=== PATIENT | female | born 1980 | race Caucasian/White ===

== ENCOUNTER 2016-12-18 10:22 | Day surgery (SDC) | payer OTHER ==
[~2016-12-18 10:22] MED LIST: LR 1,000 ML IV ONE
[2016-12-18] MEDS ORDERED: SILVER NITRATE APPLICATOR 1 APPL TP ONE (10:42)
[2016-12-18] MEDS ORDERED: BUPIVACAINE 0.5% 30 ML SDV ONE (10:42)
[2016-12-18] MEDS ORDERED: LR 1,000 ML IV ONE (10:52)
[2016-12-18] MEDS ORDERED: LIDOCAINE 1% 2 ML INJ ID PRN (10:52)
[2016-12-18] MEDS ORDERED: MIDAZOLAM 2 MG/2 ML VIAL IVP ONE (11:28)
--- NOTE | 2016-12-18 11:30 | PDANEPAE ---
ANE Past Medical History - Cardiovascular History Hx Hypertension: No Hx Arrhythmias: No Hx Chest Pain: No Hx Coronary Artery / Peripheral Vascular Disease: No Hx CHF / Valvular Disease: No Hx Palpitations: No - Pulmonary History Hx COPD: No Hx Asthma/Reactive Airway Disease: Yes Hx Recent Upper Respiratory Infection: No Hx Oxygen in Use at Home: No - Neurologic History Hx Cerebrovascular Accident: No Hx Seizures: No Hx Dementia: No - Endocrine History Hx Diabetes: No - Renal History Hx Renal Disorders: No - Liver History Hx Hepatic Disorders: No - Neurological & Psychiatric Hx Hx Neurological and Psychiatric Disorders: No - Cancer History Hx Cancer: No - Congenital Disorder History Hx Congenital Disorders: No - GI History Hx Gastrointestinal Disorders: No - Chronic Pain History Chronic Pain: No ANE Review of Systems - Exercise capacity METS (RN): 4 METS ANE Patient History - Allergies Allergies/Adverse Reactions: erythromycin base Allergy (Verified 11/27/16 11:34) Vomiting - Home Medications Home Medications: Benadryl 11/27/16 [Last Taken 12/16/16] Ibuprofen 11/27/16 [Last Taken 12/11/16] Loestrin 21 1-20 Tablet 11/27/16 [Last Taken 12/17/16] Sudafed 12-Hour 11/27/16 [Last Taken 12/14/16] - NPO status NPO Since - Liquids (Date): 12/17/16 NPO Since - Liquids (Time): 22:30 NPO Since - Solids (Date): 12/17/16 NPO Since - Solids (Time): 22:30 - Smoking Hx Smoking Status: Former smoker - Family Anes Hx Family Hx Anesthesia Complications: none ANE Labs/Vital Signs - Vital Signs Blood Pressure: 141/78 Heart Rate: 74 Respiratory Rate: 16 O2 Sat (%): 98 Height: 157.48 cm Weight: 77.111 kg ANE Physical Exam - Airway Neck exam: FROM Mallampati Score: Class 2 Mouth exam: normal dental/mouth exam - Pulmonary Pulmonary: no respiratory distress - Cardiovascular Cardiovascular: regular rate and rhythym - ASA Status ASA Status: II ANE Anesthesia Plan Anesthesia Plan: general endotracheal anesthesia
--- NOTE | 2016-12-18 11:46 | PDHPUP ---
History & Physical Update H&P update statement: This history and physical update is based on an assessment of the patient which was completed after admission or registration (within 24 hours), but prior to the surgery/procedure. H&P update: H&P reviewed & patient examined, no change in patient's condition since H&P completed
[2016-12-18] MEDS ORDERED: SUGAMMADEX SODIUM 200 MG/2 ML VIAL IVP ONE (11:56)
[2016-12-18] MEDS ORDERED: ROCURONIUM 50 MG/5 ML VIAL ONE (11:56)
[2016-12-18] MEDS ORDERED: DEXAMETHASONE 4 MG/ML VIAL ONE (11:56)
[2016-12-18] MEDS ORDERED: ONDANSETRON 4 MG/2 ML VIAL ONE (11:56)
[2016-12-18] MEDS ORDERED: fentaNYL 100 MCG/2 ML INJ ONE ×2 (11:57→13:15)
[2016-12-18] MEDS ORDERED: PROPOFOL 200 MG/20 ML VIAL ONE (11:57)
[2016-12-18] MEDS ORDERED: LIDOCAINE 2% 5 ML SDV ONE (11:57)
[2016-12-18] MEDS ORDERED: LR 1,000 ML IV SCH (12:00)
--- NOTE | 2016-12-18 12:36 | POSTANESTH ---
Post Anesthetic Evaluation Cardiovascular Status: Normal, Stable, Similar to Pre-Op Cond Respiratory Status: Normal, Stable, Similar to Pre-op Cond. Level of Consciousness/Mental Status: Can Participate in Eval, Mildly Sleepy, Arousable Pain Control: Adequate, Prn Tx Ordered Nausea/Vomiting Control: Adequate, Prn Tx Ordered Complications Possibly Related to Anesthesia: None Noted Notes: doing well
[2016-12-18] MEDS ORDERED: GLYCOPYRROLATE 0.2 MG/1 ML VIAL ONE (12:42)
[2016-12-18] MEDS ORDERED: KETOROLAC 30 MG/1 ML SDV ONE (12:46)
[2016-12-18] MEDS ORDERED: ACETAMINOPHEN 500 MG TAB PO PRN (13:14)
[2016-12-18] MEDS ORDERED: DEXAMETHASONE 4 MG/ML VIAL IVP PRN (13:14)
[2016-12-18] MEDS ORDERED: NALOXONE HCL 0.4 MG/ML INJ IVP PRN (13:14)
[2016-12-18] MEDS ORDERED: HYDROCODONE/APAP 5/325 TAB PO PRN (13:14)
[2016-12-18] MEDS ORDERED: MEPERIDINE 25 MG/ML SYR IVP PRN (13:14)
[2016-12-18] MEDS ORDERED: ONDANSETRON 4 MG/2 ML VIAL IVP PRN (13:14)
[2016-12-18] MEDS ORDERED: PROMETHAZINE HCL 25 MG/ML INJ IVP PRN (13:14)
[2016-12-18] MEDS: fentaNYL 100 MCG/2 ML INJ IVP PRN ×2 (13:17→13:26)
--- NOTE | 2016-12-18 13:38 | GOP ---
[f rep st] OPERATIVE REPORT DATE OF OPERATION: 12/18/2016 SURGEON: Kelly Griffin MD DIRECTOR OF EXHIBITS: Audrey Colon MD. PREOPERATIVE DIAGNOSIS: A 36-year-old female, who desires sterility. POSTOPERATIVE DIAGNOSIS: A 36-year-old female, who desires sterility. PROCEDURE PERFORMED: Laparoscopic bilateral salpingectomy. FINDINGS: Normal uterus, fallopian tubes, and ovaries. SPECIMENS: Bilateral fallopian tubes. ESTIMATED BLOOD LOSS: Less than 10 mL. INDICATIONS: The patient is a 36-year-old female who had been using oral contraception and desired sterility. DESCRIPTION OF PROCEDURE: The patient was taken to the operating room. She was prepped and draped in normal sterile fashion in the dorsal lithotomy position. The patient had a Melgar catheter in her bladder. A surgical time- out was performed verifying the patient's name, date of , planned procedure , and site. A bivalve speculum was placed in the patient's vagina. The inferior aspect was grasped with a single-tooth tenaculum. A uterine manipulator was placed into the cervical canal. The bivalve speculum was removed. Gloves were changed. The umbilicus was injected with 0.25% Marcaine. A 10 mm incision was made with an 11-blade scalpel. Subcutaneous tissue was dissected down to the fascia. The fascia was identified and tented up with a Juan clamp. The fascia was incised with a 15-blade scalpel. The fascia was tagged with 0 Vicryl. The peritoneum was identified and entered in sharply. The Radha port was placed into the abdominal cavity. The abdomen was insufflated. Approximately 5 cm to the patient's right of her umbilicus and 2 cm caudad the skin was transilluminated, injected with 0.25% Marcaine, and a 5 mm incision was made with an 11-blade scalpel. The port was placed into the pelvic cavity. The same procedure was performed on the patient's left side. Visualization of the pelvis revealed a normal uterus, fallopian tubes, and bilateral ovaries. The right fallopian tube was grasped. The mesosalpinx was incised to the cornu, and the fallopian tube was incised and transected at the cornu. The fallopian tube was removed. The same procedure was performed on the patient's left side. The abdomen was exsufflated. The trocars were taken out under direct visualization. The abdomen was exsufflated. The fascia was reapproximated with 0 Vicryl. The skin was reapproximated with 4-0 Monocryl. All counts were correct x2. The bivalved speculum was removed, and the single- tooth tenaculum was removed. Hemostasis was obtained with silver nitrate. All counts were correct x2. COMPLICATIONS: None. COMPLICATIONS: None. OUTCOME: Stable to recovery room. /[id number]/MODL MTDD
[2016-12-18] MEDS ORDERED: HYDROCODONE/APAP 5/325 TAB ONE (14:35)
[2016-12-18 15:04] VITALS: PULSE 81
[2016-12-18 16:32] VITALS: BP 99/68; RESP 16; TEMP 98.2; O2SAT 93
== END 2016-12-18 15:42 | disposition home or self-care (01) ==
LOC: FSGY 10:22
PROVIDERS: ATTEND Obstetrics & Gynecology
PROC: 0UT74ZZ Resection of Bilateral Fallopian Tubes, Percutaneous Endoscopic Approach (ICD-10-PCS; principal; 2016-12-18 12:00)
DX: Z30.2 Encounter for sterilization (principal)
CPT/HCPCS: J1100; J1885; J2250; J2405; J2704; J3010

== ENCOUNTER → 2018-09-28 | Outpatient (CLI) | payer OTHER ==
[~2018-09-28] MED LIST changes: +GADOBUTROL 10 ML VIAL IVP ONE; -LR 1,000 ML IV ONE
== END ==
LOC: FIMAGING 13:52
PROVIDERS: ATTEND Family Medicine Sports Medicine
DX: M50.321 Other cervical disc degeneration at C4-C5 level (principal)
CPT/HCPCS: A9585